=== PATIENT | male | born 1990 | race Caucasian/White ===

== ENCOUNTER 2020-07-11 11:23 | Emergency (ER) | payer OTHER, SELFPAY ==
[2020-07-11 11:30] VITALS: BP 123/70; PULSE 56; RESP 16; TEMP 36.6; O2SAT 100; BMI 26.6
--- NOTE | 2020-07-11 11:40 | PC.NURSE ---
pt states he was cleaning out a barn approx 1 month ago that was full of owl droppings. Pt woke the next day with c/o head pain and dark colored phlegm. Pt denies cough except to use for clearing morning phlegm
--- NOTE | 2020-07-11 11:45 | ED_ITS ---
HPI - Headache General Chief Complaint: Headache Stated Complaint: SINUS INFECTION X1 MONTH Time Seen by Provider: 07/11/20 11:26 Source: patient Mode of arrival: Ambulatory Limitations: no limitations History of Present Illness HPI Narrative: This is a 29-year-old male comes to the emergency department with complaint of sinus infection x1 month. Per patient he has not really had any sinus pain or discomfort in his forehead or cheeks. He describes more of feeling like he has to spit up phlegm for the past month improved about 2 weeks ago but has since reoccurred. He describes it is being sort of dark in color and sometimes greenish. States it feels like it is further down in his throat. He states that he usually notices it more in the morning and improves throughout the day. He denies any fevers, he has had some mild nasal drainage intermittently, no voice changes, no difficulty with swallowing, no difficulty with breathing. Patient has not had any rashes or skin changes. He has not appreciated any swelling of his neck on the outer area. Patient states that he did have a lot of exposure at work to dirt and few months ago. Patient states he has not tried any deeg-fxd-wxjnunr medications. He denies any tobacco use, he does use marijuana. He denies any other medical issues besides having athlete's foot and taking an oral antifungal for a month which he finished approximately a month ago. He denies any surgeries or allergies to medications. Patient is unsure if he has any seasonal allergies but has appreciated some symptoms at times. Related Data Previous Rx's Medication Instructions Recorded loratadine [Claritin] 10 mg PO DAILY #20 tab 07/11/20 prednisone 20 mg PO DAILY #3 tab 07/11/20 Allergies Allergy/AdvReac Type Severity Reaction Status Date / Time No Known Drug Allergies Allergy Verified 07/11/20 11:30 Review of Systems Review of Systems ROS Unobtainable: All systems reviewed & are unremarkable except as noted in HPI and below Patient History Social History Smoking Status: Never smoker Smoking Status: Never smoker Substance Use Type: marijuana Exam Narrative Exam Narrative: GEN: well nourished, well appearing male, alert and oriented x 3, patient appears to be in mild distress. HEENT: Atraumatic, pupils are equal round reactive to light, extraocular movements are intact, nares are clear, TMs are clear with no fluid, there is no conjunctival pallor. Nontender sinuses. Throat is clear without any exudates, erythema, tonsillar enlargement or uvular deviation, patient does not have any obvious postnasal drainage that time but does have some mild cobblestoning, no cervical lymphadenopathy is appreciated, no thyromegaly, patient does not have any dysarthria or hoarseness, no difficulty with swallowing. Neck is soft, supple with full range of motion HEART: Regular rate and rhythm without murmur, clicks, rubs. LUNGS:Lungs clear to auscultation, no wheezes, rales, crackles, chest moves symmetrically ABD:bowel sounds normal, soft, non-tender, no guarding, rebound, rigidity, no masses noted, no hepatosplenomegaly MSCL: Non-tender, no muscle atrophy, muscles strength 5/5 upper and lower extremities, full range of motion. SKIN: No rash, erythema or other skin changes noted. Initial Vital Signs Initial Vital Signs: Vital Signs Temperature 98 F 07/11/20 11:30 Pulse Rate 56 L 07/11/20 11:30 Respiratory Rate 16 07/11/20 11:30 Blood Pressure 123/70 07/11/20 11:30 Pulse Oximetry 100 07/11/20 11:30 Course Vital Signs Vital signs: Vital Signs - 8 hr 07/11/20 11:30 Temperature 98 F Pulse Rate 56 L Respiratory Rate 16 Blood Pressure 123/70 Pulse Oximetry 100 MDM - Headache MDM Narrative Medical decision making narrative: Patient comes in with concern for sinusitis although I suspect he has more of a postnasal drip as his symptoms seem to be worse 1st thing in the morning and improves throughout the day. Said about a month of symptoms which she describes some drainage that is darkish sometimes greenish in color. He has not had any fevers. He has not tried any stiz-jvc-adjpjyi antihistamines. Patient does not have any other red flag symptoms that would cause me to suspect other causes of his symptoms. Plan to defer antibiotics, give a short course of steroid and OTC antihistamine for symptoms. Discharge Plan Departure Patient Disposition: Home Clinical Impression: Post-nasal drainage Discharge Date/Time: 07/11/20 11:48 Activity Restrictions/Additional Instructions: Follow up in 1 week if no improvement in symptoms. Take steroids once daily until gone. Take antihistamines once daily, if these resolve your symptoms you may continue them manager intermediate. They are available over the counter. I would recommend taking these prior to sleep. Prescription sent to [facility] in [place]. Return for fevers greater than 100.4F, new swelling of face, neck, tongue or airway, voice changes, redness or new rash, coughing up blood, facial pain, inability or difficulty swallowing or other new or concerning symptoms. Prescriptions: New prednisone 20 mg tablet 20 mg PO DAILY Qty: 3 RF: 0 loratadine [Claritin] 10 mg tablet 10 mg PO DAILY Qty: 20 RF: 0 Referrals: Nicholas Ambrose MD [Physician] -
== END 2020-07-11 11:48 | disposition home or self-care (01) ==
LOC: ED 11:50
PROVIDERS: Emergency Provider Emergency Medicine
DX: R09.82 Postnasal drip (principal)
CPT/HCPCS: 99281